=== PATIENT | male | born 1990 | race American Indian/Alaskan Native ===

== ENCOUNTER 2019-04-02 19:48 | Emergency (ER) | payer MEDICAID, SELFPAY ==
[2019-04-02 19:57] VITALS: BP 150/88; PULSE 80; RESP 18; TEMP 36.1; O2SAT 98
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
[2019-04-02 20:55] VITALS: BP 148/80; PULSE 70; RESP 17
== END 2019-04-02 21:15 | disposition home or self-care (01) ==
PROVIDERS: Emergency Provider Nurse Practitioner Family
DX: H72.92 Unspecified perforation of tympanic membrane, left ear (principal); Y93.15 Activity, underwater diving and snorkeling
CPT/HCPCS: 99282; 99283